=== PATIENT | female | born 1990 | race African-American/Black ===

== ENCOUNTER 2018-12-08 05:06 | Emergency (ER) | payer MEDICAID, OTHER ==
[~2018-12-08] VITALS: Ht 170.2 cm; Wt 111.1 kg
[2018-12-08 06:20] VITALS: BP 138/80
[2018-12-08] MEDS ORDERED: cefTRIAXone SOD 1,000 MG VL IM ONE (06:30)
== END 2018-12-08 07:00 | disposition home or self-care (01) ==
LOC: ER 05:06
DX: J03.90 Acute tonsillitis, unspecified (principal); Z88.8 Allergy status to other drugs, medicaments and biological substances
CPT/HCPCS: 96372; 99283; J0696